=== PATIENT | female | born 1960 | race Caucasian/White ===

== ENCOUNTER 2017-09-05 09:00 | Emergency (ER) | payer BC ==
[~2017-09-05] VITALS: Ht 165.1 cm; Wt 86.0 kg
[~2017-09-05 09:00] MED LIST: AUGM875T PO; BISO5TAB5 PO; CLOT1CRE23 PV; FOLIPOW27 PO; HYDR200T42 PO; MECL25CH PO; METH2.5 PO; METH4TAB6 PO; MIRA0.5T PO; MOTR200T PO; PROT40TA PO
[2017-09-05 09:07] VITALS: BP 157/87; PULSE 70; RESP 16; TEMP 98.1; O2SAT 98
[2017-09-05] MEDS ORDERED: FOLIPOW21 PO (09:15)
[2017-09-05] MEDS ORDERED: RANI300T PO (09:15)
[2017-09-05] MEDS ORDERED: HYDR12.57 PO (09:15)
[2017-09-05] MEDS ORDERED: BISO10TA5 PO (09:15)
[2017-09-05] MEDS ORDERED: METH8TAB3 PO (09:15)
[2017-09-05] MEDS ORDERED: ESCI20TA PO (09:15)
[2017-09-05] MEDS ORDERED: METH2.5T IM (09:15)
[2017-09-05] MEDS ORDERED: VENTAER INH (09:28)
[2017-09-05] MEDS ORDERED: RESP: ALBUTEROL 2.5 MG/IPRATROPIUM 0.5 MG NEB (SCH) INH ONE (09:30)
--- NOTE | 2017-09-05 09:31 | PD ---
HPI Chief Complaint: Cold / Flu Symptoms Time Seen by Provider: 09:14 Travel History International Travel<30 days: No Contact w/Intl Traveler<30days: No Traveled to known affect area: No History of Present Illness HPI 56-year-old female with a history of COPD diagnosis, rheumatoid arthritis, Crohn 's disease presents to emergency department complaining of cough, congestion, fever, body aches since Thursday. Patient states that she has felt feverish but has not actually taken her temperature. Patient denies nausea, vomiting or diarrhea. Patient states over the last day she has developed increased breathing difficulty without chest pain not associated with activity. Patient has not used inhalers for some time but was prescribed these previously. 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 PFSH Past Medical History Arthritis: Yes Asthma: Yes Autoimmune Disease: Yes (RA) Depression: Yes Cancer: Yes (SKIN, MELANOMA) Cerebrovascular Accident: Yes (TIA'S) Fibromyalgia: Yes Gastrointestinal Disorders: Yes (crohn's disease) GERD: Yes Headaches: Yes Hiatal Hernia: Yes Herniated Disk: Yes (LUMBAR) Hypertension: Yes Musculoskeletal: Yes (ddd) Immunizations Current: Yes Migraines: Yes Thyroid Disease: Yes ("NODULE", GOITER) : 5 Para: 3 Miscarriage: 2 Ovarian Cysts: Yes Dilation and Curettage (D&C): Yes Past Surgical History Abdominal Surgery: Yes (reflux surgery) Hysterectomy: Yes (PARTIAL) Other Surgery: Yes (THROAT CYST REMOVED) Social History Alcohol Use: Yes (occasional) Tobacco Use: No Substance Use: No Allergies-Medications (Allergen,Severity, Reaction): Coded Allergies: Sulfa (Sulfonamide Antibiotics) (Unverified Allergy, Severe, Hives, ) GENERALIZED infliximab (Unverified Allergy, Severe, Hives, 09/05/17) GENERALIZED infliximab-dyyb (Unverified Allergy, Severe, Hives, 09/05/17) GENERALIZED etanercept (Verified Allergy, Unknown, 09/05/17) Reported Meds & Prescriptions Reported Meds & Active Scripts Active Ventolin Hfa 18 GM Inh (Albuterol Sulfate) 90 Mcg/Act Aer 2 Puff INH Q4-6H PRN Reported Escitalopram (Escitalopram Oxalate) 20 Mg Tab 20 Mg PO DAILY Methotrexate 2.5 Mg Tab 10 Mg IM WEEKLY Methylprednisolone 8 Mg Tab 4 Mg PO DAILY Bisoprolol (Bisoprolol Fumarate) 10 Mg Tab 10 Mg PO DAILY [Folic Acid] 1 Mg PO DAILY Hydrochlorothiazide 12.5 Mg Cap 12.5 Mg PO DAILY Ranitidine (Ranitidine HCl) 300 Mg Tab 300 Mg PO HS Review of Systems Except as stated in HPI: all other systems reviewed are Neg Eyes: No: Visual changes HENT: Positive: Congestion Cardiovascular: Positive: Chest Pain or Discomfort Respiratory: Positive: Cough Physical Exam Narrative GENERAL: Well-developed well-nourished in no apparent distress SKIN: Focused skin assessment warm/dry. No obvious rashes or lesions HEAD: Atraumatic. Normocephalic. EYES: Pupils equal and round. No scleral icterus. No injection or drainage. ENT: No nasal bleeding or discharge. Mucous membranes pink and moist. Mild postnasal drip without pharyngeal injection NECK: Trachea midline. No JVD. No lymphadenopathy CARDIOVASCULAR: Regular rate and rhythm. No murmur appreciated. RESPIRATORY: No accessory muscle use. Clear to auscultation. Breath sounds equal bilaterally. No wheezes, rales, or rhonchi GASTROINTESTINAL: Abdomen soft, non-tender, nondistended. MUSCULOSKELETAL: No obvious deformities. No clubbing. No cyanosis. No edema. NEUROLOGICAL: Awake and alert. No obvious cranial nerve deficits. Motor grossly within normal limits. Normal speech. PSYCHIATRIC: Appropriate mood and affect; insight and judgment normal. Data Data Last Documented VS Vital Signs Date Time Temp Pulse Resp B/P (MAP) Pulse Ox O2 Delivery O2 Flow Rate FiO2 09/05/17 09:45 97 09/05/17 09:07 98.1 70 16 157/87 (110) Orders Orders Albuterol-Ipratropium Neb (Duoneb Neb) (09/05/17 09:30) Influenzae A/B Antigen (09/05/17 09:23) Chest, Single Ap (09/05/17 ) Electrocardiogram (09/05/17 ) Ed Discharge Order (09/05/17 11:05) MDM Medical Decision Making Medical Screen Exam Complete: Yes Emergency Medical Condition: Yes Differential Diagnosis Influenza, viral syndrome, URI, COPD exacerbation Narrative Course 56-year-old female with a history of COPD diagnosis, rheumatoid arthritis, Crohn 's disease presents to emergency department complaining of cough, congestion, fever, body aches since Thursday. Patient states that she has felt feverish but has not actually taken her temperature. Patient denies nausea, vomiting or diarrhea. Patient states over the last day she has developed increased breathing difficulty without chest pain not associated with activity. Patient has not used inhalers for some time but was prescribed these previously. 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 Vital signs- afebrile, heart rate 70. Physical exam findings consistent with a nontoxic appearing 56-year-old female lying comfortably in bed. Scant clear rhinorrhea, no paraspinous tenderness, no lymphadenopathy, lungs clear to auscultation bilaterally, abdomen soft nontender Influenza negative. Chest x-ray clear EKG sinus rhythm, unchanged from 2016. Patient has no cardiac history. Patient does have a history of COPD and does not use inhalers as prescribed. DuoNeb 1. Says she feels a little better. Patient will be discharged with albuterol inhaler and advised follow-up with primary care physician. Encourage fluid intake. Advised to return for worsening or persistent symptoms. Diagnosis Primary Impression: Viral syndrome Referrals: Primary Care Physician Additional Instructions: Follow-up with primary care physician this week. If her symptoms persist or worsen return to the emergency. Remained active as tolerated to prevent worsening of your symptoms. Ensure you have adequate fluid intake Scripts Albuterol 18 GM Inh (Ventolin Hfa 18 GM Inh) 90 Mcg/Act Aer 2 PUFF INH Q4-6H Y for SHORTNESS OF BREATH, #1 INHALER 0 Refills Prov: Kathrine Mercado 09/05/17 Disposition: 01 DISCHARGE HOME Condition: Stable Kathrine Mercado Sep 05, 2017 09:31
[2017-09-05 09:45] VITALS: O2SAT 97
--- NOTE | 2017-09-05 10:56 | RADRPT ---
EXAM DATE/TIME: 09/05/2017 10:15 [facility] COMPARISON: No previous studies available for comparison. INDICATIONS : Short of breath, cough, fever MEDICAL HISTORY : Chronic obstructive pulmonary disease. SURGICAL HISTORY : spinal ENCOUNTER: Initial ACUITY: 3 days PAIN SCORE: 0/10 LOCATION: Bilateral chest FINDINGS: A single view of the chest demonstrates the lungs to be symmetrically aerated without evidence of mas s, infiltrate or effusion. The cardiomediastinal contours are unremarkable. Osseous structures are intact. CONCLUSION: Normal examination. Veronika Mejia MD on September 05, 2017 at 10:53 Board Certified Radiologist. This report was verified electronically.
--- NOTE | 2017-09-06 12:23 | EKG ---
Date Performed: 09/05/2017 Time Performed: 11:00:08 PTAGE: 56 years EKG: Sinus rhythm MODERATE VOLTAGE CRITERIA FOR LVH, CONSIDER NORMAL VARIANT BORDERLINE ECG PREVIOUS TRACING : 11/26/2015 10.32 Since the prior tracing, there has been no significant de luna DOCTOR: Dat Garsia Interpretating Date/Time 09/07/2017 07:22:41
== END 2017-09-05 11:16 | disposition home or self-care (01) ==
LOC: PHEFT 09:00
DX: B34.9 Viral infection, unspecified (principal); R94.31 Abnormal electrocardiogram [ECG] [EKG]; M06.9 Rheumatoid arthritis, unspecified; I10 Essential (primary) hypertension; F32.9 Major depressive disorder, single episode, unspecified; M79.7 Fibromyalgia; K50.90 Crohn's disease, unspecified, without complications; K21.9 Gastro-esophageal reflux disease without esophagitis; J44.9 Chronic obstructive pulmonary disease, unspecified; Z86.73 Personal history of transient ischemic attack (TIA), and cerebral infarction without residual deficits
CPT/HCPCS: 71045; 87804; 93005; 94664; 99285